=== PATIENT | male | born 1965 | race Caucasian/White ===

== ENCOUNTER 2020-04-22 09:23 | Emergency (ER) | payer OTHER ==
[~2020-04-22] VITALS: Ht 177.8 cm; Wt 93.4 kg
[2020-04-22 09:47] VITALS: BP 118/84; Ht 177.8 cm; Wt 93.4 kg
== END 2020-04-22 11:59 | disposition home or self-care (01) ==
LOC: ED 09:23
DX: H10.9 Unspecified conjunctivitis (principal)